=== PATIENT | female | born 1985 | race Caucasian/White ===

== ENCOUNTER 2017-07-10 18:57 | Emergency (ER) | payer OTHER ==
[~2017-07-10] VITALS: Ht 182.9 cm; Wt 136.1 kg
[~2017-07-10 18:57] MED LIST: BUSPIRONE HCL10 MG PO; CELEXA 20 MG TA20 MG PO; CIPRO250 M1 PO; CITALOPRAM; DESVENLAFAXINE100 MG PO; DOXAZOSIN MESYLA1 MG PO; FLEXERIL PO; LEVAQUIN 500 M500 M2 PO; MEDROLDOSEPACK PO; NAPROSYN500 MG PO; NORCO 5-325 TA1 EACH PO; ORTHO TRI-CYCL1 EACH PO; XANAX XR2 MG PO; XANAX2 MG PO
[2017-07-10] MEDS ORDERED: ROBAXIN 750 MG750 M1 PO (19:09)
[2017-07-10] MEDS ORDERED: NORCO 5-325 TA1 EAC1 PO (19:54)
[2017-07-10 20:00] VITALS: BP 143/89
== END 2017-07-10 20:00 | disposition home or self-care (01) ==
LOC: M.ERS 18:57
DX: J02.9 Acute pharyngitis, unspecified (principal); F43.10 Post-traumatic stress disorder, unspecified; Z87.440 Personal history of urinary (tract) infections; Z88.6 Allergy status to analgesic agent

== ENCOUNTER 2017-08-18 18:48 | Inpatient (IN) | payer OTHER ==
[~2017-08-18] VITALS: Ht 182.9 cm; Wt 136.1 kg
[~2017-08-18 18:48] MED LIST changes: +NORCO 5-325 TA1 EAC1 PO; +ROBAXIN 750 MG750 M1 PO
[2017-08-18 19:10] VITALS: BP 158/95
[2017-08-18 19:33] LABS: URINE BILIRUBIN NEGATIVE (Negative); URINE BLOOD TRACE (Negative); URINE CLARITY SL HAZY; URINE COLOR YELLOW; URINE GLUCOSE-RANDOM NEGATIVE (Negative); URINE KETONES NEGATIVE (Negative); URINE LEUKOCYTES-REFLEX 1+ (Negative); URINE NITRITE-REFLEX NEGATIVE (Negative); URINE PROTEIN NEGATIVE (Negative); URINE SPECIFIC GRAVITY 1.025 (1.005-1.030); URINE UROBILINOGEN 0.2 E.U./dl (0.2-1.0)
[2017-08-18 19:41] LABS: SQUAMOUS 4-10 Moderate /LPF (0-3)
[2017-08-18 19:44] LABS: BACTERIA-REFLEX 1-9 Few /HPF (None Seen); MUCUS 4-6 Moderate strn/LPF (None Seen); URINE RBC 3-10 Few /HPF (0-2); URINE WBC-REFLEX 6-15 Few /HPF (0-5)
[2017-08-18 19:45] LABS: CASTS None Seen /LPF (None Seen); CRYSTALS None Seen /LPF (None Seen)
[2017-08-18 19:57] LABS: ABSOLUTE BASOPHILS 0.1 thou/uL (0.0-0.2); ABSOLUTE EOSINOPHILS 0.4 thou/uL (0.0-0.7); ABSOLUTE LYMPHOCYTES 2.8 thou/uL (0.8-5.3); ABSOLUTE MONOCYTES 0.6 thou/uL (0.0-1.2); ABSOLUTE NEUTROPHILS 5.6 thou/uL (1.6-8.1); EOSINOPHILS 4.3 %; HEMOGLOBIN 11.6 gm/dL (12.0-15.0); LYMPHOCYTES 29.4 %; MCH 27.9 pg (26.0-34.0); MCHC 33.1 g/dL (28.0-37.0); MCV 84.4 fL (80.0-100.0); MONOCYTES 6.7 %; MPV 8.2 fl. (7.2-11.1); NUCLEATED RBCS 0 /100WBC; PLATELET COUNT* 331 thou/uL (150-400); POLYS 58.6 %; RBC 4.15 mil/uL (4.20-5.00); RDW-CV 14.9 % (10.5-14.5); WBC 9.5 thou/uL (4.0-11.0)
[2017-08-18 20:01] LABS: CALCIUM 8.6 mg/dL (8.5-10.1); CREATININE 1.1 mg/dL (0.6-1.3); POTASSIUM 3.6 mmol/L (3.5-5.1)
[2017-08-18 20:05] LABS: ALBUMIN 3.8 g/dL (3.4-5.0); TOTAL BILIRUBIN 0.4 mg/dL (<0.1-1.0); TOTAL PROTEIN 7.4 g/dL (6.4-8.2)
[2017-08-19 00:45] VITALS: BP 146/89
[2017-08-19 08:15] VITALS: BP 127/70
[2017-08-19 08:20] LABS: ABSOLUTE BASOPHILS 0.1 thou/uL (0.0-0.2); ABSOLUTE EOSINOPHILS 0.1 thou/uL (0.0-0.7); ABSOLUTE LYMPHOCYTES 1.1 thou/uL (0.8-5.3); ABSOLUTE MONOCYTES 0.7 thou/uL (0.0-1.2); ABSOLUTE NEUTROPHILS 7.2 thou/uL (1.6-8.1); BASOPHILS 1.1 %; HEMATOCRIT 33.7 % (37.0-47.0); HEMOGLOBIN 11.3 gm/dL (12.0-15.0); LYMPHOCYTES 11.5 %; MCH 28.2 pg (26.0-34.0); MCHC 33.6 g/dL (28.0-37.0); MCV 84.1 fL (80.0-100.0); MONOCYTES 7.9 %; MPV 7.9 fl. (7.2-11.1); NUCLEATED RBCS 0 /100WBC; PLATELET COUNT* 287 thou/uL (150-400); POLYS 78.5 %; RBC 4.01 mil/uL (4.20-5.00); RDW-CV 15.2 % (10.5-14.5); WBC 9.1 thou/uL (4.0-11.0)
[2017-08-19 08:36] LABS: CREATININE 1.3 mg/dL (0.6-1.3); POTASSIUM 4.5 mmol/L (3.5-5.1)
[2017-08-19 09:45] LABS: AMP/METHAMP Negative (Negative); BARBITURATES Negative (Negative); BENZODIAZEPINES POSITIVE (Negative); COCAINE Negative (Negative); METHADONE Negative (Negative); OPIATES POSITIVE (Negative); PCP Negative (Negative); THC Negative (Negative)
[2017-08-19 12:15] VITALS: BP 131/72
[2017-08-19 15:20] VITALS: BP 138/74
[2017-08-19 20:10] VITALS: BP 120/75
[2017-08-20 00:21] VITALS: BP 115/69
[2017-08-20 03:58] LABS: ABSOLUTE EOSINOPHILS 0.1 thou/uL (0.0-0.7); ABSOLUTE LYMPHOCYTES 1.5 thou/uL (0.8-5.3); ABSOLUTE MONOCYTES 0.6 thou/uL (0.0-1.2); ABSOLUTE NEUTROPHILS 5.7 thou/uL (1.6-8.1); BASOPHILS 0.3 %; EOSINOPHILS 1.5 %; HEMATOCRIT 30.4 % (37.0-47.0); HEMOGLOBIN 10.1 gm/dL (12.0-15.0); LYMPHOCYTES 19.4 %; MCH 28.2 pg (26.0-34.0); MCV 85.4 fL (80.0-100.0); MPV 8.3 fl. (7.2-11.1); NUCLEATED RBCS 0 /100WBC; PLATELET COUNT* 253 thou/uL (150-400); POLYS 71.8 %; RBC 3.56 mil/uL (4.20-5.00); RDW-CV 15.1 % (10.5-14.5)
[2017-08-20 04:26] LABS: CALCIUM 7.7 mg/dL (8.5-10.1); CREATININE 1.4 mg/dL (0.6-1.3); POTASSIUM 3.8 mmol/L (3.5-5.1)
[2017-08-20 07:36] VITALS: BP 127/75
[2017-08-20 16:12] VITALS: BP 127/73
[2017-08-20 20:00] VITALS: BP 121/72
[2017-08-21 07:48] VITALS: BP 116/68
[2017-08-21 08:20] LABS: ABSOLUTE EOSINOPHILS 0.1 thou/uL (0.0-0.7); ABSOLUTE LYMPHOCYTES 1.5 thou/uL (0.8-5.3); ABSOLUTE MONOCYTES 0.5 thou/uL (0.0-1.2); ABSOLUTE NEUTROPHILS 4.8 thou/uL (1.6-8.1); BASOPHILS 0.4 %; EOSINOPHILS 2.1 %; HEMATOCRIT 29.9 % (37.0-47.0); HEMOGLOBIN 9.8 gm/dL (12.0-15.0); LYMPHOCYTES 21.2 %; MCH 27.9 pg (26.0-34.0); MCHC 32.8 g/dL (28.0-37.0); MCV 85.1 fL (80.0-100.0); MONOCYTES 7.4 %; MPV 8.6 fl. (7.2-11.1); NUCLEATED RBCS 0 /100WBC; PLATELET COUNT* 225 thou/uL (150-400); POLYS 68.9 %; RBC 3.51 mil/uL (4.20-5.00); RDW-CV 15.2 % (10.5-14.5); WBC 6.9 thou/uL (4.0-11.0)
[2017-08-21 08:39] LABS: ALBUMIN 2.7 g/dL (3.4-5.0); CREATININE 1.2 mg/dL (0.6-1.3); POTASSIUM 3.3 mmol/L (3.5-5.1); TOTAL BILIRUBIN 0.3 mg/dL (<0.1-1.0); TOTAL PROTEIN 6.1 g/dL (6.4-8.2)
[2017-08-21 08:50] VITALS: BP 116/68
[2017-08-21 09:11] VITALS: BP 140/82
[2017-08-21 13:48] VITALS: BP 140/82
[2017-08-21] MEDS ORDERED: CIPRO500 MG PO (14:15)
[2017-08-21] MEDS ORDERED: LEVSIN0.125 MG PO (14:18)
[2017-08-21] MEDS ORDERED: PHENAZOPYRIDIN200 M2 PO (14:20)
[2017-08-21] MEDS ORDERED: IBUPROFEN 400400 M2 PO (14:25)
[2017-08-21] MEDS ORDERED: HYDROCODONE-AP1 EAC6 PO (15:09)
[2017-09-01 17:15] LABS: STONE CA OXALATE DIHYDRATE 20 % (()); STONE CA OXALATE MONOHYDRATE 70 % (()); STONE CALCIUM PHOSPHATE 10 % (()); STONE COLOR Tan (()); STONE SIZE 3x2x1 mm (())
--- NOTE | 2017-09-07 12:50 | OP ---
[facility] [address] [place] [address] OPERATIVE REPORT Name: JOSE DEL CID Room: [address]#: [id number] Admission: 08/18/17 Attend Phys: Liliana Wilkinson MD Discharge: 08/21/17 Date of : 81 Report #: [id number] THIS REPORT FOR: //name// CC: [facility] physician/PCP Liliana Wilkinson DATE OF SERVICE: 08/21/2017 PREOPERATIVE DIAGNOSIS: Right distal ureteral calculus. POSTOPERATIVE DIAGNOSIS: Right distal ureteral calculus. PROCEDURES PERFORMED: 1. Cystoscopy with right retrograde pyelogram. 2. Right ureteroscopy with basket stone extraction. 3. Right 6 x 30 double-J ureteral stent placement. SURGEON: Nahum Alaniz M.D. ANESTHESIA: Laryngeal mask airway. BRIEF HISTORY: The patient is a 32-year-old female who presented to [facility] with right-sided flank pain. CT imaging demonstrated the presence of a 3 mm right distal ureteral calculus. Attempts at conservative management failed secondary to persistent nausea, vomiting, and pain. Given the above, she was scheduled for cystoscopy with right retrograde pyelogram, right ureteroscopy with possible laser lithotripsy, stone retrieval, and stent placement. The risks of the procedure including the risks of bleeding, infection, damage to surrounding structures, need for additional procedures, and anesthetic risks were discussed with the patient and she wished to proceed. PROCEDURE IN DETAIL: The risks and benefits of surgery were discussed with the patient and she wished to proceed. Informed consent was obtained and the patient was transferred to the operating room where she was laid supine on the operating room table. After the induction of adequate general endotracheal anesthesia and the administration of appropriate preoperative antibiotics, the patient's legs were placed in a modified dorsal lithotomy position, taking care to pad all pressure points and avoid any hyperextension or hyperflexion of her joints. The patient's genitalia were prepped and draped in the usual sterile fashion. A timeout was then performed to ensure correct patient and procedure. At this time, a 22-Lao cystoscope sheath with a 30-degree lens was lubricated and advanced under direct vision and irrigation through the urethra and into the bladder. The cystoscope was disarticulated and the bladder was drained. Cystoscopy was then performed under direct vision and irrigation. The patient's ureteral orifices were found to be in their normal anatomic location. Systematic panendoscopy revealed no gross bladder wall pathology[place] [address] OPERATIVE REPORT Name: JOSE DEL CID Room: [address]#: [id number] Admission: 08/18/17 Attend Phys: Liliana Wilkinson MD Discharge: 08/21/17 Date of : 81 Report #: [id number] papillary tumors or suspicious lesions identified. There was noted to be a tiny, punctate calculus in the dependent region of the bladder. At this time, a 5-Lao Pollack catheter was placed into the patient's right ureteral orifice and a right retrograde pyelogram was performed. Contrast could be seen filling the distal, mid and proximal right ureter as well as the right collecting system. There was a radiolucent filling defect in the right distal ureter consistent with the calculus previously observed on CT imaging. A 0.038 ZIPwire was then advanced into the right ureter and up into the kidney under fluoroscopic guidance. The wire was clamped to the drape as a safety wire. The cystoscope was disarticulated and the bladder was drained. A rigid ureteroscope was then obtained and was advanced under direct vision and pressure flow irrigation through the urethra and into the bladder. Ureteroscope was able to be advanced across the right ureteral orifice. Approximately 1-2 cm proximal to that, there was an intrinsic area of narrowing, which was prohibitive in ureteroscopic advancement to the stone. This is the likely etiology of the patient's inability to pass her stone. The ureteroscope was removed and the inner cannula of an 04/27 navigator ureteral access sheath was advanced over the wire under fluoroscopic guidance just into the distal ureter in order to perform a gentle dilation. The inner cannula was removed and the wire was re-clamped to the drape. The rigid ureteroscope was then able to be easily advanced across the distal ureter to the patient's calculus. The stone was spiculated and irregular. The stone was able to be grasped with a 0 tip nitinol basket and was removed without difficulty. The stone was passed off the table for pathologic analysis. The ureteroscope was then advanced to the proximal ureter and was withdrawn. There were no additional stones identified. At this time, a retrograde pyelogram was repeated by injecting contrast through the ureteroscope under fluoroscopic vision. This demonstrated patency and integrity of the ureter and collecting system and delineated the collecting system for stent placement. The ureteroscope was withdrawn. A 4.8 x 28 double-J ureteral stent was then advanced over the safety wire and into position. The wire was withdrawn, deploying the stent. The stent was seen to coil at the ureteropelvic junction under fluoroscopy and this stent was partially coiled in the bladder under direct vision with the cystoscope. Given the above, the decision was made to exchange the stent for a longer stent to ensure there would be no migration. The stent was grasped and pulled to the patient's urethral meatus. The wire was replaced through the stent and the stent was removed. The stent was found to be completely intact. A 6 x 30 double-J ureteral stent was then advanced over the wire and into the kidney under fluoroscopic guidance. The wire was withdrawn, deploying the stent. A good coil of the stent was identified within the right renal pelvis under fluoroscopy and a good coil of the stent was identified within the bladder under direct vision with the cystoscope. The cystoscope was disarticulated and the bladder was drained. B and O suppository was placed per rectum. The patient was returned to a supine position, awakened from anesthesia, and transferred to the postoperative care unit in stable condition. The patient [place] [address] OPERATIVE REPORT Name: JOSE DEL CID Room: [address]#: [id number] Admission: 08/18/17 Attend Phys: Liliana Wilkinson MD Discharge: 08/21/17 Date of : 81 Report #: [id number] COMPLICATIONS: None. ESTIMATED BLOOD LOSS: None. INTRAVENOUS FLUIDS: Crystalloid. DRAINS: Right 6 x 30 double-J ureteral stent. SPECIMENS: Right distal ureteral calculus. FINDINGS: 1. No gross bladder wall pathology. 2. Right retrograde pyelogram demonstrating a radiolucent filling defect of the distal ureter consistent with the calculus previously observed on CT imaging. 3. Right ureteroscopy demonstrating an intrinsic area of narrowing approximately 1-2 cm from the right ureteral orifice, gently dilated. 4. Right ureteroscopy demonstrating a spiculated, irregular right distal ureteral calculus, grasped and removed without difficulty. 5. Right 6 x 30 double-J ureteral stent in good position by fluoroscopy and direct vision at the conclusion of the procedure. <ELECTRONICALLY SIGNED> By: Nahum Alaniz MD 09/07/17 1250 1113 [id number] Alaniz MD /nt
== END 2017-08-21 15:30 | disposition home or self-care (01) | DRG 669 ==
LOC: M.ERS 18:48 → M.TBA-ER 23:34 → M.ORTHSURG 23:34
PROVIDERS: Internal Medicine; Nurse Practitioner Family; Physician Assistant; ADMIT Internal Medicine
PROC: 0T768DZ Dilation of Right Ureter with Intraluminal Device, Via Natural or Artificial Opening Endoscopic (ICD-10-PCS; principal; 2017-08-21)
PROC: 0TC68ZZ Extirpation of Matter from Right Ureter, Via Natural or Artificial Opening Endoscopic (ICD-10-PCS; principal; 2017-08-21)
PROC: BT1D1ZZ Fluoroscopy of Right Kidney, Ureter and Bladder using Low Osmolar Contrast (ICD-10-PCS; principal; 2017-08-21)
DX: N13.2 Hydronephrosis with renal and ureteral calculous obstruction (principal); N39.0 Urinary tract infection, site not specified; F43.10 Post-traumatic stress disorder, unspecified; Z87.81 Personal history of (healed) traumatic fracture; Z79.899 Other long term (current) drug therapy; Z28.21 Immunization not carried out because of patient refusal; Z88.8 Allergy status to other drugs, medicaments and biological substances

== ENCOUNTER 2018-04-11 10:57 | Emergency (ER) | payer OTHER ==
[~2018-04-11] VITALS: Ht 182.9 cm; Wt 136.1 kg
[~2018-04-11 10:57] MED LIST changes: +CIPRO500 MG PO; +HYDROCODONE-AP1 EAC6 PO; +IBUPROFEN 400400 M2 PO; +LEVSIN0.125 MG PO; +PHENAZOPYRIDIN200 M2 PO
[2018-04-11 11:03] VITALS: BP 156/103
[2018-04-11] MEDS ORDERED: DIPHENHIST50 MG PO (11:17)
[2018-04-11] MEDS ORDERED: PREDNISONE50 MG PO (11:17)
== END 2018-04-11 11:36 | disposition home or self-care (01) ==
LOC: M.ERS 10:57
DX: R21 Rash and other nonspecific skin eruption (principal); L29.9 Pruritus, unspecified; L53.9 Erythematous condition, unspecified; Z88.6 Allergy status to analgesic agent; Z87.440 Personal history of urinary (tract) infections

== ENCOUNTER 2020-12-28 15:33 | Emergency (ER) | payer OTHER ==
[~2020-12-28] VITALS: Ht 182.9 cm; Wt 136.1 kg
[~2020-12-28 15:33] MED LIST changes: +DIPHENHIST50 MG PO; +PREDNISONE50 MG PO
[2020-12-28] MEDS ORDERED: VENLAFAXINE HC100 MG PO (15:44)
[2020-12-28] MEDS ORDERED: ANTI ANXIETY (15:45)
[2020-12-28 17:44] LABS: ABSOLUTE BASOPHILS 0.1 thou/uL (0.0-0.2); ABSOLUTE EOSINOPHILS 0.2 thou/uL (0.0-0.7); ABSOLUTE LYMPHOCYTES 2.4 thou/uL (0.8-5.3); ABSOLUTE MONOCYTES 0.5 thou/uL (0.0-1.2); ABSOLUTE NEUTROPHILS 4.6 thou/uL (1.6-8.1); BASOPHILS 1.2 %; EOSINOPHILS 3.1 %; HEMATOCRIT 38.4 % (37.0-47.0); HEMOGLOBIN 12.6 gm/dL (12.0-15.0); LYMPHOCYTES 30.8 %; MCH 27.9 pg (26.0-34.0); MCHC 32.9 g/dL (28.0-37.0); MCV 84.7 fL (80.0-100.0); MONOCYTES 6.8 %; MPV 8.1 fl. (7.2-11.1); NUCLEATED RBCS 0 /100WBC; PLATELET COUNT* 318 thou/uL (150-400); POLYS 58.1 %; RBC 4.53 mil/uL (4.20-5.00); RDW-CV 14.8 % (10.5-14.5); URINE BILIRUBIN NEGATIVE (Negative); URINE BLOOD NEGATIVE (Negative); URINE CLARITY CLEAR; URINE COLOR YELLOW; URINE GLUCOSE-RANDOM NEGATIVE (Negative); URINE KETONES NEGATIVE (Negative); URINE LEUKOCYTES-REFLEX NEGATIVE (Negative); URINE NITRITE-REFLEX NEGATIVE (Negative); URINE PROTEIN NEGATIVE (Negative); URINE UROBILINOGEN 0.2 E.U./dl (0.2-1.0); WBC 7.9 thou/uL (4.0-11.0)
[2020-12-28 17:52] LABS: CALCIUM 8.7 mg/dL (8.5-10.1); CREATININE 0.9 mg/dL (0.6-1.3); POTASSIUM 3.9 mmol/L (3.5-5.1)
[2020-12-28 17:57] LABS: ALBUMIN 3.5 g/dL (3.4-5.0); TOTAL BILIRUBIN 0.4 mg/dL (<0.1-1.0); TOTAL PROTEIN 7.4 g/dL (6.4-8.2)
[2020-12-28] MEDS ORDERED: PEPCID20 MG PO ×2 (18:20→18:21)
[2020-12-28] MEDS ORDERED: ONDANSETRON HCL4 M2 PO ×2 (18:20→18:21)
[2020-12-28] MEDS ORDERED: OMEPRAZOLE 20 M20 M1 PO ×2 (18:20→18:21)
[2020-12-28 18:34] VITALS: BP 121/70
--- NOTE | 2020-12-31 17:03 | EKG ---
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: DHIRAJ : 1985 Requested By: Cliff Burgess Order Number: [id number] MD: Donaldo Hargrove Measurements Intervals [place] Rate: 92 P: 26 NV: 151 QRS: 29 QRSD: 86 T: 13 QT: 343 QTc: 425 Interpretive Statements Sinus rhythm Baseline wander in lead(s) II,III,aVF Compared to ECG 03/24/2010 17:51:55 No significant changes Electronically Signed On 12-31-2020 17:02:58 CDT by Donaldo Hargrove [email or web address] <ELECTRONICALLY SIGNED> By: Donaldo Hargrove MD, FAC 12/31/20 1702 1548 1548 Donaldo Hargrove MD, [facility] /EPI
== END 2020-12-28 18:35 | disposition home or self-care (01) ==
LOC: M.ERS 15:33
PROVIDERS: Physician Assistant
DX: R10.13 Epigastric pain (principal); Z87.440 Personal history of urinary (tract) infections; Z88.6 Allergy status to analgesic agent; Z79.899 Other long term (current) drug therapy